=== PATIENT | male | born 1980 | race Caucasian/White ===

== ENCOUNTER 2016-10-20 08:01 | Emergency (ER) | payer MEDICAID ==
[~2016-10-20] VITALS: Ht 175.3 cm; Wt 63.5 kg
--- NOTE | 2016-10-20 08:01 | NUR ---
BROUGHT BACK TO BED #8 AND TRIAGED. REPORT GIVEN TO KB
--- NOTE | 2016-10-20 08:03 | NUR ---
ER at bedside examining patient.
--- NOTE | 2016-10-20 08:07 | NUR ---
Pt presents to ED c/o Rib pain s/p fall while bodysurfing at concert.Pt AAOx4 slow gait w/R rib guarding.
[2016-10-20 08:09] VITALS: BP_SYST 146
--- NOTE | 2016-10-20 08:10 | NUR ---
Pt unable to provide urine specime at this time.
[2016-10-20] MEDS ORDERED: KETOROLAC TROMETHAMINE 60 MG/2 ML VIAL IM ONE (08:15)
--- NOTE | 2016-10-20 08:18 | NUR ---
rPatient transported to radiology via wheelchair, accompanied by rad staff.
--- NOTE | 2016-10-20 08:30 | NUR ---
Pt returned from rad dept tolerated well.
--- NOTE | 2016-10-20 08:35 | NUR ---
Pt medicated tolerated well.
--- NOTE | 2016-10-20 08:56 | NUR ---
Pt tolerated rib binding. Pt attempting urine collection again.
--- NOTE | 2016-10-20 09:12 | NUR ---
urine specimen cancelled per
[2016-10-20 09:14] LABS: BASOPHILS # (AUTO) 0.1 K/uL (0.0-0.2); BASOPHILS % (AUTO) 1.3 % (0.0-2.0); EOSINOPHILS # (AUTO) 0.1 K/uL (0.0-0.4); EOSINOPHILS % (AUTO) 1.1 % (0.0-4.0); HEMATOCRIT 49.1 % (36-54); HEMOGLOBIN 16.3 g/dL (14.0-18.0); LYMPHOCYTES # (AUTO) 1.3 K/uL (1.0-5.5); LYMPHOCYTES % (AUTO) 21.2 % (20.5-51.5); MEAN CORPUSCULAR HEMOGLOBIN 31 pg (27-31); MEAN CORPUSCULAR HGB CONC 33 % (32-36); MEAN CORPUSCULAR VOLUME 93 fL (79.0-98.0); MONOCYTES # (AUTO) 0.4 K/uL (0.0-1.0); MONOCYTES % (AUTO) 6.7 % (1.7-9.3); NEUTROPHILS % (AUTO) 69.7 % (40.0-70.0); PLATELET COUNT (AUTO) 209 K/uL (130-430); RED BLOOD CELL COUNT(AUTO) 5.31 MIL/uL (4.2-6.2); WHITE BLOOD COUNT (AUTO) 5.9 K/uL (4.8-10.8)
[2016-10-20 09:17] LABS: CALCIUM 9.2 mg/dL (8.4-11.0); CREATININE 1.08 mg/dL (0.55-1.30); POTASSIUM 4.1 mmol/L (3.5-5.1)
[2016-10-20 09:20] VITALS: BP_SYST 140
--- NOTE | 2016-10-20 09:20 | NUR ---
Patient given written and verbal discharge instructions and verbalizes understanding. ER MD discussed with patient the results and treatment provided. Given copies of tests performed in ER. Patient in stable condition. ID arm band removed. Rx of motrin given. Patient educated on pain management and to follow up with PMD. Pain Scale 2. Opportunity for questions provided and answered.
[2016-10-20 09:23] LABS: ALBUMIN 4.5 g/dL (3.4-4.8); TOTAL BILIRUBIN 0.9 mg/dL (0.0-1.0)
== END 2016-10-20 09:20 | disposition home or self-care (01) ==
LOC: SED 08:01
DX: S22.31XA Fracture of one rib, right side, initial encounter for closed fracture (principal); R03.0 Elevated blood-pressure reading, without diagnosis of hypertension; W22.8XXA Striking against or struck by other objects, initial encounter; Y93.89 Activity, other specified; Y92.89 Other specified places as the place of occurrence of the external cause; Y99.8 Other external cause status
CPT/HCPCS: 36415; 71010; 71100; 80053; 85025; 96372; 99285; J1885

== ENCOUNTER 2018-11-25 12:35 | Emergency (ER) | payer BC, MEDICAID ==
[~2018-11-25] VITALS: Ht 175.3 cm; Wt 74.8 kg
[2018-11-25 12:59] VITALS: BP_SYST 161
[2018-11-25 13:30] VITALS: BP_SYST 161
== END 2018-11-25 13:30 | disposition home or self-care (01) ==
LOC: SED 12:35
DX: S01.412A Laceration without foreign body of left cheek and temporomandibular area, initial encounter (principal); R03.0 Elevated blood-pressure reading, without diagnosis of hypertension; W22.8XXA Striking against or struck by other objects, initial encounter; Y93.51 Activity, roller skating (inline) and skateboarding; Y92.89 Other specified places as the place of occurrence of the external cause; Y99.8 Other external cause status
CPT/HCPCS: 99283

== ENCOUNTER 2024-01-19 11:51 | Emergency (ER) | payer BC ==
[~2024-01-19] VITALS: Ht 177.8 cm; Wt 72.6 kg
[2024-01-19 12:00] VITALS: BP_SYST 143; PULSE 109; RESP 18; TEMP 98.6; O2SAT 96
[2024-01-19 12:45] VITALS: BP_SYST 143; PULSE 109; RESP 18; TEMP 98.6; O2SAT 96
== END 2024-01-19 12:45 | disposition home or self-care (01) ==
LOC: SED 11:51
DX: S51.011A Laceration without foreign body of right elbow, initial encounter (principal); V00.131A Fall from skateboard, initial encounter; Y93.51 Activity, roller skating (inline) and skateboarding; Y92.89 Other specified places as the place of occurrence of the external cause; Y99.8 Other external cause status
CPT/HCPCS: 99282